=== PATIENT | male | born 1980 | race Caucasian/White ===

== ENCOUNTER 2022-03-15 10:55 | Emergency (ER) | payer OTHER ==
[2022-03-15 11:28] LABS: HEMOGLOBIN 14.8 gm/dl (14.0-17.5); RED BLOOD COUNT 4.93 M/UL (4.20-5.50); WHITE BLOOD COUNT 8.4 K/UL (4.5-11.0)
[2022-03-15 11:52] LABS: BUN/CREATININE RATIO 13 (0-10)
[2022-03-15] MEDS ORDERED: OMEPRAZOLE20 M1 PO (15:11)
[2022-03-15] MEDS ORDERED: ONDANSETRON ODT4 MG SL (15:11)
[2022-03-15] MEDS ORDERED: DULCOLAX5 MG PO (15:11)
== END 2022-03-15 15:34 | disposition home or self-care (01) ==
LOC: ER1 10:55
PROVIDERS: Physician Assistant
DX: K59.00 Constipation, unspecified (principal); K80.80 Other cholelithiasis without obstruction; K76.0 Fatty (change of) liver, not elsewhere classified; F17.210 Nicotine dependence, cigarettes, uncomplicated
CPT/HCPCS: 80053; 81001; 83690; 85025; 96361; 96374; 96375; 99284; C9113; J1885; J2405; Q9967